=== PATIENT | female | born 1945 ===

== ENCOUNTER 2017-10-31 10:58 | Inpatient (IN) | payer MEDICARE ==
[2017-10-31] MEDS ORDERED: Sodium Chloride 0.9% 1,000 ML IV STA (12:26)
--- NOTE | 2017-10-31 13:56 | CT ---
PROCEDURE: CT HEAD WITHOUT CONTRAST. HISTORY: r/o ICH COMPARISON: None available. TECHNIQUE: Axial computed tomography images were obtained through the head/brain without intravenous contrast. Radiation dose: Total exam DLP = 804.60 mGy-cm. This CT exam was performed using one or more of the following dose reduction techniques: Automated exposure control, adjustment of the mA and/or kV according to patient size, and/or use of iterative reconstruction technique. FINDINGS: HEMORRHAGE: No intracranial hemorrhage. BRAIN: Good corticomedullary differentiation is seen. Diffuse expansion of the ventriculosulcal and cisternal spaces is appreciated with white matter lucency compatible with diffuse cerebral atrophy and chronic microangiopathy. No suspicious extra-axial fluid collection is identified and the midline brain anatomy appears grossly nonfocal as imaged. There a few punctate cortical granulomata seen in the left frontal region. There is no mass effect throughout. VENTRICLES: Unremarkable. No hydrocephalus. CALVARIUM: Unremarkable. PARANASAL SINUSES: Unremarkable as visualized. No significant inflammatory changes. MASTOID AIR CELLS: Unremarkable as visualized. No inflammatory changes. OTHER FINDINGS: None. IMPRESSION: Mild age related neuro degenerative changes are appreciated without acute intracranial findings by standard CT criteria. Follow-up CT or MRI are available if clinically warranted.
--- NOTE | 2017-10-31 14:13 | RAD ---
HISTORY: SOB COMPARISON: 05/26/2008 TECHNIQUE: Chest PA and lateral FINDINGS: LUNGS: No active pulmonary disease. PLEURA: No significant pleural effusion identified. No pneumothorax apparent. CARDIOVASCULAR: Normal. OSSEOUS STRUCTURES: No significant abnormalities. VISUALIZED UPPER ABDOMEN: Normal. OTHER FINDINGS: None. IMPRESSION: No active disease.
[2017-10-31 14:14] LABS: BASO % 0.3 % (0.0-2.0); EOS % 0.7 % (0.0-4.0); LYMPH # 1.3 K/uL (1.0-4.3); LYMPH % 23.9 % (20.0-40.0); MEAN CELL VOLUME 78.2 fl (81.0-99.0); MEAN CORPUSCULAR HEMOGLOBIN 25.3 pg (27.0-31.0); MEAN CORPUSCULAR HGB CONC 32.4 g/dL (33.0-37.0); MEAN PLATELET VOLUME 10.3 fl (7.2-11.7); MONO # 0.6 K/uL (0.0-0.8); MONO % 10.3 % (0.0-10.0); NEUT # 3.5 K/uL (1.8-7.0); NEUT % 64.8 % (50.0-75.0); NRBC % 0.1 % (0.0-0.0); RBC 5.52 Mil/uL (3.80-5.20); RED CELL DISTRIBUTION WIDTH 16.7 % (11.5-14.5); WHITE BLOOD COUNT 5.4 K/uL (4.8-10.8)
[2017-10-31 14:24] LABS: ALB/GLOB RATIO 1.2 (1.0-2.1); ALBUMIN 4.3 g/dL (3.5-5.0); ALT/SGPT 35 U/L (9-52); AST/SGOT 30 U/L (14-36); BLOOD UREA NITROGEN 12 mg/dl (7-17); CALCIUM 9.4 mg/dL (8.4-10.2); GFR AFRICAN-AMERICAN > 60; GFR NON-AFRICAN AMERICAN > 60
--- NOTE | 2017-10-31 14:30 | ED PDOC ---
HPI: Headache Time Seen by Provider: 10/31/17 11:09 Chief Complaint (Nursing): Weakness/Neurological Deficit Chief Complaint (Provider): Generalized weaknes, headache & difficulty ambulating History Per: Patient, Family History/Exam Limitations: no limitations Onset/Duration Of Symptoms: Days (x1 week) Current Symptoms Are (Timing): Still Present Additional Complaint(s): Joleen Capps is a 72 year old female, with a past medical history of Parkinson's disease and HTN, who presents to the emergency department accompanied by family complaining of a worsening generalized weakness, headache , and difficulty ambulating ongoing for a week, associated with mild shortness of breath. Family also reports loose stools and state she has been somewhat confused more than baseline. Family denies any fever, chills, cough or vomiting. Patient takes Carbidopa/Levodopa for Parkinson's along with Klonopin for anxiety and Mirtazapine for sleep, she is not taking medications for her HTN. She saw her neurologist x1 month ago. No further medical complaints. PMD: None provided. Past Medical History Reviewed: Historical Data, Nursing Documentation, Vital Signs Vital Signs: Last Vital Signs Temp 99.5 F 10/31/17 11:16 Pulse 81 10/31/17 11:16 Resp 18 10/31/17 11:16 BP 169/87 H 10/31/17 11:16 Pulse Ox 96 10/31/17 11:16 - Medical History PMH: Anxiety, HTN (Not on medications), Parkinson's Disease - Surgical History Other surgeries: hysterectomy - Family History Family History: States: No Known Family Hx - Social History Current smoker - smoking cessation education provided: No Alcohol: None Drugs: Denies - Home Medications Home Medications: Ambulatory Orders Medication Instructions Recorded Alprazolam [Xanax] 1 tab PO PRN PRN 10/31/17 Aspirin [Ecotrin] 81 mg PO DAILY 10/31/17 Carbidopa/Levodopa 25/100 mg 1 tab PO QID 10/31/17 [Sinemet] Clonazepam [Klonopin] 0.5 mg PO BID 10/31/17 Ibuprofen [Advil] 1 tab PO PRN PRN 10/31/17 - Allergies Allergies/Adverse Reactions: Allergies Allergy/AdvReac Type Severity Reaction Status Date / Time Penicillins Allergy RASH Verified 10/31/17 11:20 Review of Systems ROS Statement: Except As Marked, All Systems Reviewed And Found Negative Constitutional: Positive for: Weakness (generalized). Negative for: Fever Cardiovascular: Negative for: Edema Respiratory: Negative for: Cough Gastrointestinal: Negative for: Abdominal Pain Neurological: Positive for: Confusion, Headache Physical Exam - Reviewed Nursing Documentation Reviewed: Yes Vital Signs Reviewed: Yes - Physical Exam Appears: Positive for: Non-toxic. Negative for: Well (generally Parkinsonian w / flat facies) Head Exam: Positive for: ATRAUMATIC, NORMOCEPHALIC Skin: Positive for: Normal Color, Warm, Dry Eye Exam: Positive for: Normal appearance, EOMI, PERRL Neck: Positive for: Painless ROM, Supple Cardiovascular/Chest: Positive for: Regular Rate, Rhythm. Negative for: Edema, Murmur Respiratory: Positive for: Normal Breath Sounds (clear to auscultation). Negative for: Respiratory Distress Gastrointestinal/Abdominal: Positive for: Normal Exam, Soft. Negative for: Tenderness, Guarding, Rebound Back: Positive for: Normal Inspection. Negative for: L CVA Tenderness, R CVA Tenderness, Vertebral Tenderness Extremity: Positive for: Other (b/l hypertensitivity/rigidity ). Negative for: Deformity, Swelling Neurologic/Psych: Positive for: Alert, Oriented (x3 in the ED ) - Laboratory Results Result Diagrams: 10/31/17 14:10 10/31/17 14:10 - ECG ECG Rhythm: Positive for: Sinus Rhythm Rate: 74 O2 Sat by Pulse Oximetry: 96 (RA) Pulse Ox Interpretation: Normal Interpretation Of Abnormal: Inferior Q waves, QTc 435 Medical Decision Making Medical Decision Making: Initial Impression: generalized weakness and headache Initial Plan: --Head w/o contrast [CT] --EK --CMP --Total creatinine kinase --Troponin I --CBC w/ differential --Chest two views (PA/LAT) [RAD] --Glucose, POC --Sodium Chloride 1,000 ml IV 1,000 mls/hr --Urinalysis --Reevaluation -Work up for generalized weakness and headache w/ CT head, blood work and CXR While in ED, son arrived giving further history that his mother has been depressed and attempted suicide last week with attempting to suffocate self. Patient/ did not admit to such before. Son reports increasing use of xanax/ klonopin and tearful hopelessness from mother Bernice avina requested. CTA also ordered given reports of mild Chest pain and SOB, c/w prior anxiety, but given sedentary lifestyle must r/o PE. 14:11 CXR FINDINGS: LUNGS: No active pulmonary disease. PLEURA: No significant pleural effusion identified. No pneumothorax apparent. CARDIOVASCULAR: Normal. OSSEOUS STRUCTURES: No significant abnormalities. VISUALIZED UPPER ABDOMEN: Normal. OTHER FINDINGS: None. IMPRESSION: No active disease. 13:[address] FINDINGS: HEMORRHAGE: No intracranial hemorrhage. BRAIN: Good corticomedullary differentiation is seen. Diffuse expansion of the ventriculosulcal and cisternal spaces is appreciated with white matter lucency compatible with diffuse cerebral atrophy and chronic microangiopathy. No suspicious extra-axial fluid collection is identified and the midline brain anatomy appears grossly nonfocal as imaged. There a few punctate cortical granulomata seen in the left frontal region. There is no mass effect throughout. VENTRICLES: Unremarkable. No hydrocephalus. CALVARIUM: Unremarkable. PARANASAL SINUSES: Unremarkable as visualized. No significant inflammatory changes. MASTOID AIR CELLS: Unremarkable as visualized. No inflammatory changes. OTHER FINDINGS: None. IMPRESSION: Mild age related neuro degenerative changes are appreciated without acute intracranial findings by standard CT criteria. Follow-up CT or MRI are available if clinically warranted. Accession No. : [id number] Patient Name / ID : EDITH CADENA / [id number] Exam Date : 10/31/2017 17:24:49 ( Approved ) Study Comment : Sex / Age : F / 72Y Creator : Miguel Pollock MD Dictator : Fire Support Man : Assistant Designer : Miguel Pollock MD Approver2 : Report Date : 10/31/2017 18:11:24 My Comment : This report is currently processing and HAS NOT BEEN OFFICIALLY SIGNED BY THE PHYSICIAN - ESTIMATED TIME OF APPROVAL IS 10/31/2017 18:17. PROCEDURE: CT Chest with contrast (Pulmonary Angiogram) HISTORY: Bedbound, chest pain mild SOB r/o PE COMPARISON: None available. TECHNIQUE: Contiguous helical/ transaxial sections of the chest obtained in the pulmonary arterial phase of enhancement. Coronal and sagittal reformatted images were created and reviewed. Intravenous contrast dose: 65.5 cc Visipaque 320 Radiation dose: Total exam DLP = 381.69 mGy-cm. This CT exam was performed using one or more of the following dose reduction techniques: Automated exposure control, adjustment of the mA and/or kV according to patient size, and/or use of iterative reconstruction technique. FINDINGS: PULMONARY ARTERIES: The study is suboptimal due to streak and beam hardening artifact arising from the upper extremities which have not been moved from the field of view. The visualized portions of the pulmonary trunk, right and left main, segmental and most proximal margins of the subsegmental branches of the pulmonary arteries are relatively well opacified with no definitive filling defects however note that the distal branches are poorly delineated due to at aforementioned. Pulmonary trunk measures approximately 2.8 cm AORTA: No acute findings. No thoracic aortic aneurysm see below for additional details. LUNGS: Evaluation of the lung parenchyma reveals no focal consolidation however mild passive/dependent type atelectasis both posterior lower lung zones. . There are scarring changes seen in the right anterior aspect right upper lobe which exhibit that extend to the anterior pleural surface. Within this area scarring is a somewhat elliptical shaped nodular component measuring approximately 9 mm that is felt to represent somewhat atypical appearing scar formation as well however the possibility of underlying lesion such is a scar carcinoma cannot be completely excluded. Recommend followup the CT scan of the chest in 3 months to assess stability. . Minor scarring changes also seen in the of left lingular region and left lung base. PLEURAL SPACES: Unremarkable. No effusion or pneumothorax. HEART: The heart is enlarged. No significant pericardial effusion. Ascending thoracic aorta measures approximately 3.2 cm and descending thoracic aorta measures approximately 2.3 cm. . The right brachiocephalic and left common carotid artery arise from a common trunk. The central airways are midline and patent. No large endoluminal lesions. LYMPH NODES: No significant mediastinal adenopathy however note made of a few small mediastinal calcifications consistent with tiny calcified mediastinal lymph nodes; calcifications suggest prior exposure to granulomatous disease process. No significant the hilar adenopathy. BONES, CHEST WALL: The osseous structures appear grossly intact. Mild diffuse demineralization. OTHER FINDINGS: Evaluation of the upper abdominal structures also limited due to more significant streak artifact again related to upper extremities which have not been moved from the field of view IMPRESSION: No limited study due to fairly significant streak and beam hardening artifact arising from the upper extremities which have not been moved from the field of view. No definitive evidence of central pulmonary embolus however the distal branches poorly seen and cannot be adequately evaluated. Scarring changes seen in the right anterior upper lung field with a a central approximately 9 mm elliptical shaped nodular component ;. Recommend follow-up CT scan 3 months to assess stability and exclude the possibility of an aggressive lesion such is a scar carcinoma. Mild passive/dependent type atelectasis both lung bases. Cardiomegaly. --------- ativan 1mg IV given for anxiolysis for CTA. Son informed of CT results and need for repeat testing 3 months to assure stability of R upper lobe lesion. Per crisis, admit geropsych. Medically stable for geropsych admission, likely to need med/neuro consults on floor for maintence parkinsons medications. Scribe Attestation: Documented by Pito Russell, acting as a scribe for Camilo Michelle MD Provider Scribe Attestation: All medical record entries made by the Scribe were at my direction and personally dictated by me. I have reviewed the chart and agree that the record accurately reflects my personal performance of the history, physical exam, medical decision making, and the department course for this patient. I have also personally directed, reviewed, and agree with the discharge instructions and disposition. Disposition - Clinical Impression Clinical Impression: Depression, Parkinsons disease, Benzodiazepine abuse - Patient ED Disposition Is Patient to be Admitted: Yes - Disposition Disposition Time: 15:01 Condition: FAIR Forms: [employer] (Albanian) - Pt Status Changed To: Hospital Disposition Of: Inpatient - Admit Certification Admit to Inpatient:: After my assessment, the patient will require hospitalization for at least two midnights. This is because of the severity of symptoms shown, intensity of services needed, and/or the medical risk in this patient being treated as an outpatient. - POA Present On Arrival: None
[2017-10-31] MEDS ORDERED: Sodium Chloride 0.9% 100 ML ONE (15:12)
[2017-10-31] MEDS ORDERED: Iodixanol 320 MG/ML 100 ML BOTTLE IV ONE (15:12)
[2017-10-31 15:32] LABS: SQUAMOUS EPITHIAL < 1 /hpf (0-5); URINE BACTERIA RARE (<OCC); URINE BILIRUBIN NEGATIVE (NEGATIVE); URINE BLOOD SMALL (NEGATIVE); URINE CLARITY CLEAR (Clear); URINE COLOR STRAW (YELLOW); URINE GLUCOSE (UA) NEG (Normal); URINE LEUKOCYTE ESTERASE NEG Leu/uL (Negative); URINE PROTEIN NEGATIVE (NEGATIVE); URINE UROBILINOGEN 0.2-1.0 mg/dL (0.2-1.0)
--- NOTE | 2017-10-31 18:13 | CT ---
PROCEDURE: CT Chest with contrast (Pulmonary Angiogram) HISTORY: Bedbound, chest pain mild SOB r/o PE COMPARISON: None available. TECHNIQUE: Contiguous helical/ transaxial sections of the chest obtained in the pulmonary arterial phase of enhancement. Coronal and sagittal reformatted images were created and reviewed. Intravenous contrast dose: 65.5 cc Visipaque 320 Radiation dose: Total exam DLP = 381.69 mGy-cm. This CT exam was performed using one or more of the following dose reduction techniques: Automated exposure control, adjustment of the mA and/or kV according to patient size, and/or use of iterative reconstruction technique. FINDINGS: PULMONARY ARTERIES: The study is suboptimal due to streak and beam hardening artifact arising from the upper extremities which have not been moved from the field of view. The visualized portions of the pulmonary trunk, right and left main, segmental and most proximal margins of the subsegmental branches of the pulmonary arteries are relatively well opacified with no definitive filling defects however note that the distal branches are poorly delineated due to at aforementioned. Pulmonary trunk measures approximately 2.8 cm AORTA: No acute findings. No thoracic aortic aneurysm see below for additional details. LUNGS: Evaluation of the lung parenchyma reveals no focal consolidation however mild passive/dependent type atelectasis both posterior lower lung zones. . There are scarring changes seen in the right anterior aspect right upper lobe which exhibit that extend to the anterior pleural surface. Within this area scarring is a somewhat elliptical shaped nodular component measuring approximately 9 mm that is felt to represent somewhat atypical appearing scar formation as well however the possibility of underlying lesion such is a scar carcinoma cannot be completely excluded. Recommend followup the CT scan of the chest in 3 months to assess stability. . Minor scarring changes also seen in the of left lingular region and left lung base. PLEURAL SPACES: Unremarkable. No effusion or pneumothorax. HEART: The heart is enlarged. No significant pericardial effusion. Ascending thoracic aorta measures approximately 3.2 cm and descending thoracic aorta measures approximately 2.3 cm. . The right brachiocephalic and left common carotid artery arise from a common trunk. The central airways are midline and patent. No large endoluminal lesions. LYMPH NODES: No significant mediastinal adenopathy however note made of a few small mediastinal calcifications consistent with tiny calcified mediastinal lymph nodes; calcifications suggest prior exposure to granulomatous disease process. No significant the hilar adenopathy. BONES, CHEST WALL: The osseous structures appear grossly intact. Mild diffuse demineralization. OTHER FINDINGS: Evaluation of the upper abdominal structures also limited due to more significant streak artifact again related to upper extremities which have not been moved from the field of view IMPRESSION: No limited study due to fairly significant streak and beam hardening artifact arising from the upper extremities which have not been moved from the field of view. No definitive evidence of central pulmonary embolus however the distal branches poorly seen and cannot be adequately evaluated. Scarring changes seen in the right anterior upper lung field with a a central approximately 9 mm elliptical shaped nodular component ;. Recommend follow-up CT scan 3 months to assess stability and exclude the possibility of an aggressive lesion such is a scar carcinoma. Mild passive/dependent type atelectasis both lung bases. Cardiomegaly.
[2017-10-31 18:17] VITALS: O2SAT 96
[2017-10-31] MEDS ORDERED: Bismuth Subsalicylate 262 mg/15 ml Sus (240 ml) PO PRN (20:13)
[2017-10-31] MEDS ORDERED: Magnesium Hydroxide Susp 30 ml UD PO PRN (20:13)
[2017-10-31] MEDS ORDERED: Alum-Mag Hydrox-Simethicone Susp (30 mL) PO PRN (20:13)
--- NOTE | 2017-10-31 20:31 | PCM.BM ---
<Verena Harrison - Last Filed: 10/31/17 20:29> Treatment Plan Problems - Problems identified on initial assessmt Hopelessness/Helplessness Date Initiated: 10/31/17 Time Initiated: 20:29 Assessment reference: NA Status: Active Altered Sleep Patterns Date Initiated: 10/31/17 Time Initiated: 20:30 Assessment reference: NA Status: Active Treatment assets and liabiliti Patient Assests: cooperative, good support system, negotiates basic needs, cognitively intact Patient Liabilities: medical problems, language/speech - Milieu Protocol Maintain good personal hygiene: daily Encourage regular showers, daily Remind patient to perform daily oral care, daily Assist patient to perform ADL's Conduct patient checks and document Observation sheet: Q15 minutes Maintain personal safety: every shift Educate patient to report safety concerns to staff, every shift Monitor environment for contraband/sharps Medication safety: Monitor for expected outcome, potential side effects: every shift, Assess barriers to learning: every shift, Assess readiness for medication education: every shift <Sadie Guallap - Last Filed: 11/01/17 08:23> - Diagnosis (1) Major depressive disorder Status: Acute Interventions: Medication managment, Individual and group therapy, Psychoeducation 11/01/17 07:59 (2) Generalized anxiety disorder Status: Acute Interventions: Medication management, Individual and group therapy, Psychoeducation 11/01/17 08:24 <Scarlet Granados - Last Filed: 11/02/17 12:14> Family Contact Family involvement: Family/SO is involved Family contact: Patient agrees to contact, Family has been contacted by patient , Telephone contact initiated by staff Family contact name: Keon Reeves - son Family contacted how many times per week?: 1 - Outside Agency Dr. Keerthi Clemente MD Care involvment: Information-sharing Agency contact number: [phone] - Goals for Treatment Patient goals for treatment: Pt to be encouraged to attend activity and clinical groups 3-5x per week to identify at least 2 contributing factors to depression and suicide attempt. Psycho-education to be provided to patient/ family regarding benefits of medications and treatment adherence. Pt to be encouraged to participate in group milieu to develop effective coping skills to reduce depression and free of suicide ideation. Coordinate discharge resource needs by providing referral for psychiatric treatment follow up in the community. Discharge/Continuing Care - Education Needs Education Needs: Family Medication, Family Diagnosis/Disease Process, Family Coping Skills, Family Community resources, Family Activities of Daily Living, Family Uses of Medical Equipment, Family Health Practices/Safety, Family Personal Hygiene/Grooming, Family Aftercare Safety Plan, Patient Medication, Patient Diagnosis/Disease Process, Patient Coping Skills, Patient Community resources, Patient Activities of Daily Living, Patient Uses of Medical Equipment , Patient Health Practices/Safety, Patient Personal Hygiene/Grooming, Patient Aftercare Safety Plan - Discharge Discharge Criteria: Tolerates medication w/o severe side effects, Free of Suicidal thoughts, Normal sleep pattern, Ability to care for self, Reduction of target symptoms Discharge to:: Home, With Family - Additional Comments 11/02/17 12:10 Pt seen and discussed in team meeting. Reason for hospitalization reviewed. Pt reported being referred to the ED by her son due to increased feelings of depression, anxiety and sporadic suicide ideation. Pt reported feeling a burden to her due to her medical issues and the inability to complete household chorus. Pt reported that her is elderly and "is getting tired of doing everything." Pt reported that she feels depressed because prior to one year ago she was doing everything around the house and the one caring for her family. Pt reported she has sudden panic attacks which then cause her to experience vague suicide ideation. Pt reported she would not act on the thoughts bc she is Gnosticist and has myles in God. Pt also reported she would never want to hurt her children. Pt's medications reviewed and discussed. Pt's social and medical issues reviewed. [place] plan reviewed and pt is agreeable. SW to continue to follow case. - Treatment Team Participation Discussed with Family/SO: No Was Patient/Family/SO present at Treatment Team Meeting: Yes
[2017-11-01 07:42] LABS: T4 10.7 ug/dl (5.5-11.0)
[2017-11-01 07:59] LABS: FERRITIN 51.7 ng/Ml (11.1-264.0)
--- NOTE | 2017-11-01 08:00 | PCM.PSYCH ---
Initial Psychiatric Evaluation - Initial Psychiatric Evaluation Type of Admission: Voluntary Legal Status: Capacity Chief Complaint (in patient's own words): "I'm so anxious" Patient's Reaction to Hospitalization: HPI: 72 yo female presents w/ worsening depression and anxiety due to worsening parkinson's symptoms and feelings of hopelessness and helplessness about her condition. She reports that sometimes she has passive wishes that she were not alive due to her medical problems, but denies active suicidal ideation/plan/ intent and reports that her mandaen mandaen, and grandchildren are reasons to continue living. She reports difficulty sleeping at night. +Normal appetite. No AH/VH/paranoia/delusions. PMHx: Parkinson's Disease, HTN PPHx: H/o depression and anxiety; currently in outpatient treatment w/ Dr. Clemente , who prescribed Remeron and Xanax; she does not believe the medications are working ALL: PCN SurgHx: Hysterectomy SHx: From [facility], retired, used to own a restaurant, lives w/ husbands; denies drugs/etoh/cig use Current Medications: Active Medications Generic Name Dose Route Start Last Admin Trade Name Freq PRN Reason Stop Dose Admin Acetaminophen 650 mg 10/31/17 20:13 Tylenol 325mg Tab PO Q4 PRN Pain, moderate (4-7) Al Hydrox/Mg Hydrox/Simethicone 30 ml 10/31/17 20:13 Maalox Plus 30 Ml PO Q4 PRN Dyspepsia Bismuth Subsalicylate 524 mg 10/31/17 20:13 Pepto-Bismol PO Q4 PRN Diarrhea Lorazepam 0.5 mg 10/31/17 20:52 11/01/17 00:34 Ativan PO 11/14/17 20:53 0.5 mg HS PRN Administration Insomnia Lorazepam 0.5 mg 10/31/17 20:52 Ativan PO 11/14/17 20:53 Q6 PRN Anixety/Agitation Magnesium Hydroxide 30 ml 10/31/17 20:13 Milk Of Magnesia PO HS PRN Constipation Past Psychiatric History - Past Psychiatric History Pertinent Medical Hx (Current Medical&Sleep Prob, Allergies): Allergies Allergy/AdvReac Type Severity Reaction Status Date / Time Penicillins Allergy RASH Verified 10/31/17 11:20 Alprazolam [Xanax] 1 tab PO PRN PRN 10/31/17 Aspirin [Ecotrin] 81 mg PO DAILY 10/31/17 Carbidopa/Levodopa 25/100 mg [Sinemet] 1 tab PO QID 10/31/17 Ibuprofen [Advil] 1 tab PO PRN PRN 10/31/17 Review of Systems - Psychiatric Psychiatric: As Per HPI, Abnormal Sleep Pattern, Change in Appetite, Depression , Difficulty Concentrating, Hopelessness, Memory Loss, Mood Swings Mental Status Examination - Personal Presentation Personal Presentation: Looks stated age - Affect Affect: Constricted, Depressed - Motor Activity Motor Activity: Calm - Reliability in Providing Information Reliability in Providing Information: Fair - Speech Speech: Organized, Coherent - Mood Mood: Depressed, Anxious - Hallucinations/Delusions Additional comments: Denies AH/VH/paranoia - Obsessions/Compulsions Obsessions: No Compulsions: No - Cognitive Functions Orientation: Person, Place, Situation, Time Sensorium: Alert Attention/Concentration: Attentive Judgement: Intact, as evidence by: Insight regarding need for hospitalization Memory: Recent intact, as evidence by: Ability to recall events of the day - Risk Risk: Diminished functioning - Strength & Assets Inventory Strength & Assets Inventory: Family support, Employment history, Spiritual affiliations, Cooperative DSM 5 DX - DSM 5 DSM 5 Diagnosis: Major Depressive Disorder; Generalized Anxiety Disorder - Recommended/Plan of Treatment Treatment Recommendations and Plan of Treatment: Major Depressive Disorder; Generalized Anxiety Disorder -Admit to geriatric psychiatry unit -Individual and group therapy -Medicine consult -Start Zoloft and hold Remeron -Stop Xanax; will give Ativan PRN as needed for anxiety -Continue Sinemet -Disposition planning Projected ELOS: 5-8 days Discharge Plan and Discharge Criteria: Discharge when patient is psychiatrically stable - Smoking Cessation Smoking Cessation Initiated: No Reason for not providing: Not indicated
[2017-11-01 08:25] LABS: IRON 44 ug/dL (37-170)
[2017-11-01 08:35] LABS: % IRON SATURATION 15 % (20-55); TOTAL IRON BINDING CAPACITY 295 ug/dL (250-450)
[2017-11-01 13:19] LABS: FOLATE 17.2 ng/mL
--- NOTE | 2017-11-01 18:19 | CP.PCM.CON ---
History of Present Illness - History of Present Illness History of Present Illness: This is a 72 year old female with pmh of Parkinson's disease and hypertension, who came to the ED c/o generalized weakness, headache x 1 week. The headache is constant "in the middle of my head" and associated with mild shortness of breath. The patient takes Sinemeet for Parkinson's, Klonopin for anxiety, and Mirtazepine for sleep. In the ED, the patient was found to have no acute finding of CVA or hemorrhage on CT head. Because of shortness of breath in the setting of sedentery lifestyle, the patient had CT chest done to r/o PE which was negative. CXR negative. However, in the ED Crisis team was called as the son gave further history of depression and attempted suicide last week in an attempt to sufficate herself. She has also been using increasing amounts of Xanax and klonopin at home. The patient was subsequently admitted to [facility] for further stabilization of her depression and suicide disorder. Medical consultation was obtained for management of her chronic illnesses, Parkinson's and hypertension. Currently the patient is admitting to headache as mentioned above. She denies any other problems at this time. Patient denies chest pain, shortness of breath, fevers, chills, nausea, vomiting, diarrhea. All of the patient's questions were answered at the bedside Review of Systems - Review of Systems Review of Systems: A 12 point review of systems was conducted and found to be negative other than what was mentioned in the HPI. Past Patient History - Infectious Disease Hx of Infectious Diseases: None - Past Medical History & Family History Past Medical History?: Yes Past Family History: Reviewed and not pertinent - Past Social History Alcohol: None Drugs: Denies - CARDIAC Hx Cardiac Disorders: No Hx Hypertension: Yes (Not on medications) - PULMONARY Hx Tuberculosis: No - NEUROLOGICAL HX Cerebrovascular Accident: No Hx Parkinson's Disease: Yes Hx Seizures: No - HEMATOLOGICAL/ONCOLOGICAL Hx Cancer: No Hx Human Immunodeficiency Virus (HIV): No - MUSCULOSKELETAL/RHEUMATOLOGICAL Hx Arthritis: Yes Hx Falls: Yes - GENITOURINARY/GYNECOLOGICAL Hx Sexually Transmitted Disorders: No - PSYCHIATRIC Hx Anxiety: Yes Hx Depression: Yes Hx Substance Use: No - SURGICAL HISTORY Hx Surgeries: Yes Hx Hysterectomy: Yes - ANESTHESIA Hx Anesthesia: Yes Hx Anesthesia Reactions: No Hx Malignant Hyperthermia: No Meds Allergies/Adverse Reactions: Allergies Allergy/AdvReac Type Severity Reaction Status Date / Time Penicillins Allergy RASH Verified 10/31/17 11:20 - Medications Medications: Current Medications Acetaminophen (Tylenol 325mg Tab) 650 mg PO Q4 PRN PRN Reason: Pain, moderate (4-7) Al Hydrox/Mg Hydrox/Simethicone (Maalox Plus 30 Ml) 30 ml PO Q4 PRN PRN Reason: Dyspepsia Aspirin (Ecotrin) 81 mg PO DAILY [facility] Last Admin: 11/01/17 09:15 Dose: 81 mg Bismuth Subsalicylate (Pepto-Bismol) 524 mg PO Q4 PRN PRN Reason: Diarrhea Carbidopa/Levodopa (Sinemet) 1 tab PO TID [facility] Last Admin: 11/01/17 16:39 Dose: 1 tab Lorazepam (Ativan) 0.5 mg PO HS PRN PRN Reason: Insomnia Stop: 11/14/17 20:53 Last Admin: 11/01/17 00:34 Dose: 0.5 mg Lorazepam (Ativan) 0.5 mg PO Q6 PRN PRN Reason: Anixety/Agitation Stop: 11/14/17 20:53 Last Admin: 11/01/17 12:34 Dose: 0.5 mg Magnesium Hydroxide (Milk Of Magnesia) 30 ml PO HS PRN PRN Reason: Constipation Sertraline HCl (Zoloft) 50 mg PO DAILY [facility] Last Admin: 11/01/17 09:15 Dose: 50 mg Physical Exam - Additional Findings Additional findings: Physical exam: Constitutional- cooperative, awake, alert Head- NCAT, PERRL Eye- PERRL, EOMI ENT- normal exam, MMM. Neck- normal inspection, supple, no JVD Respiratory- CTAB, no wheezes rales rhonchi Cardiovascular- RRR, +S1, +S2 no MRG GI/Abdominal- normal bowel sounds, soft, no mass, no hsm Skin- warm, dry Extremities Exam- resting tremor consistent with hx Parkinson's disease, normal capillary refill, normal inspection Neurological Exam- alert, awake, oriented Psych- depressed mood, flat affect Results - Vital Signs Recent Vital Signs: Last Vital Signs Temp 98.4 F 11/01/17 16:13 Pulse 69 11/01/17 16:13 Resp 20 11/01/17 16:13 BP 116/68 11/01/17 16:13 Pulse Ox 96 10/31/17 19:51 - Labs Result Diagrams: 10/31/17 14:10 10/31/17 14:10 Labs: Laboratory Results - last 24 hr 11/01/17 11/01/17 11/01/17 06:30 06:30 06:30 Hemoglobin A1c 6.1 Iron 44 TIBC 295 % Saturation 15 L Ferritin 51.7 Triglycerides 104 Cholesterol 151 LDL Cholesterol Direct 75 HDL Cholesterol 42 Vitamin B12 453 Folate 17.2 Free T4 Thyroxine (T4) 10.7 TSH 3rd Generation 2.83 11/01/17 06:30 Hemoglobin A1c Iron TIBC % Saturation Ferritin Triglycerides Cholesterol LDL Cholesterol Direct HDL Cholesterol Vitamin B12 Folate Free T4 1.09 Thyroxine (T4) TSH 3rd Generation Assessment & Plan - Assessment and Plan (Free Text) Plan: ASSESSMENT/PLAN This is a 72 year old female with pmh of Parkinson's disease and hypertension, who came to the ED c/o generalized weakness, headache x 1 week, and admitted to [facility] due to depression with suicidal attempt last week. 1) Parkinson's disease, chronic - stable - Continue home Sinemet 1 mg po TID 2) Essential hypertension history- chronic - controlled without medications - anxiety disorder may have provoked this in the past - ASA 81 mg po daily - Heart healthy diet 3) Depression - Zoloft 50 mg po daily
--- NOTE | 2017-11-01 23:00 | CARD ---
APPROVED REPORT EKG Measurement Heart [id number] SD [id number] [id number] <Conclusion> Normal sinus rhythm Inferior infarct, age undetermined Abnormal ECG
--- NOTE | 2017-11-02 11:58 | PCM.PYCHPN ---
Psychiatric Progress Note - Psychiatric Progress Note Patient seen today, length of contact: Patient evaluated, case discussed with team, chart reviewed Patient Chief Complaint: "I'm so anxious" Problems Identified/Issues Discussed: Patient continues to report feeling depressed and anxious. She states that her anxiety is worse at night. She has a history of chronic Xanax use. We discussed starting Klonopin at night. r/b/se reviewed. No adverse effects to medications reported at this time. Medication Change: Yes (Start Klonopin 0.25 mg PO HS) Medical Record Reviewed: Yes Consults ordered or reviewed: Medicine consult Mental Status Examination - Cognitive Function Orientation: Person, Place, Situation, Time Memory: Intact Association: WNL Fund of Knowledge: [facility] Decription of patient's judgement and insights: Fair I/J - Mood Mood: Depressed, Anxious - Affect Affect: Constricted, Depressed - Speech Speech: Appropriate - Formal Thought Process Formal Thought Process: No Impairment Psychotic Thoughts and Behaviors: No AH/VH/paranoia/delusions - Suicidal Ideation Suicidal Ideation: No - Homicidal Ideation Homicidal Ideation: No Goal/Treatment Plan - Goal/Treatment Plan Need for Continued Stay: Severe depression anxiety, Discharge may exacerbated symptoms Progress Toward Problem(s) and Goals/Treatment Plan: Major Depressive Disorder; Generalized Anxiety Disorder -Individual and group therapy -Medicine consult -Continue Zoloft -Continue Sinemet -Start Klonopin 0.25 mg PO HS -Disposition planning Estimated Date of D/C: 11/07/17
--- NOTE | 2017-11-03 10:24 | PCM.PYCHPN ---
Psychiatric Progress Note - Psychiatric Progress Note Patient seen today, length of contact: Patient evaluated, case discussed with team, chart reviewed Patient Chief Complaint: "I'm so anxious" Problems Identified/Issues Discussed: Patient continues to report feeling depressed and anxious. She reports that she has difficult concentrating due to her acute anxiety. r/b/se reviewed. No adverse effects to medications reported at this time. Medication Change: Yes (Increase Klonopin to 0.25 mg PO Q12) Medical Record Reviewed: Yes Mental Status Examination - Cognitive Function Orientation: Person, Place, Situation, Time Memory: Impaired Attention: Poor Concentration: Poor Association: WNL Fund of Knowledge: [facility] Decription of patient's judgement and insights: Limited I/J - Mood Mood: Depressed, Anxious - Affect Affect: Constricted, Depressed - Speech Speech: Appropriate - Formal Thought Process Formal Thought Process: No Impairment Psychotic Thoughts and Behaviors: No AH/VH/paranoia/delusions - Suicidal Ideation Suicidal Ideation: No - Homicidal Ideation Homicidal Ideation: No Goal/Treatment Plan - Goal/Treatment Plan Need for Continued Stay: Severe depression anxiety, Discharge may exacerbated symptoms Progress Toward Problem(s) and Goals/Treatment Plan: Major Depressive Disorder; Generalized Anxiety Disorder -Individual and group therapy -Medicine consult -Continue Zoloft -Continue Sinemet -Increase Klonopin to 0.25 mg PO Q12 -Disposition planning Estimated Date of D/C: 11/07/17
--- NOTE | 2017-11-04 11:35 | PCM.PYCHPN ---
Psychiatric Progress Note - Psychiatric Progress Note Patient seen today, length of contact: Patient evaluated, case discussed with team, chart reviewed Patient Chief Complaint: "I'm anxious." Problems Identified/Issues Discussed: Patient reports that she feels anxious, but that her anxiety is improving. She reports that she feels less depressed and is more hopeful. No adverse effects to medications reported at this time. Medication Change: No Medical Record Reviewed: Yes Consults ordered or reviewed: Medicine consult Mental Status Examination - Cognitive Function Orientation: Person, Place, Situation, Time Memory: Impaired Attention: Poor Concentration: Poor Association: WNL Fund of Knowledge: [facility] Decription of patient's judgement and insights: Limited I/J - Mood Mood: Depressed, Anxious - Affect Affect: Broad - Speech Speech: Appropriate - Formal Thought Process Formal Thought Process: No Impairment Psychotic Thoughts and Behaviors: No AH/VH/paranoia/delusions - Suicidal Ideation Suicidal Ideation: No - Homicidal Ideation Homicidal Ideation: No Goal/Treatment Plan - Goal/Treatment Plan Need for Continued Stay: Severe depression anxiety, Discharge may exacerbated symptoms Progress Toward Problem(s) and Goals/Treatment Plan: Major Depressive Disorder; Generalized Anxiety Disorder -Individual and group therapy -Medicine consult -Continue Zoloft -Continue Sinemet -Continue Klonopin -Disposition planning Estimated Date of D/C: 11/07/17
[2017-11-04] MEDS ORDERED: Naphazoline/Pheniramine Opht SOLN OU PRN (17:25)
--- NOTE | 2017-11-05 11:43 | PCM.PYCHPN ---
Psychiatric Progress Note - Psychiatric Progress Note Patient seen today, length of contact: Patient evaluated, case discussed with team, chart reviewed Patient Chief Complaint: "I'm anxious." Problems Identified/Issues Discussed: Patient is calmer, less anxious and less depressed. No adverse effects to medications reported at this time. No AH/VH/SI/HI. She continues to have constricted affect. Medication Change: No Medical Record Reviewed: Yes Consults ordered or reviewed: Medicine consult Mental Status Examination - Cognitive Function Orientation: Person, Place, Situation, Time Memory: Impaired Attention: Poor Concentration: Poor Association: WNL Fund of Knowledge: [facility] Decription of patient's judgement and insights: Limited I/J - Mood Mood: Depressed, Anxious - Affect Affect: Constricted - Speech Speech: Appropriate - Formal Thought Process Formal Thought Process: No Impairment Psychotic Thoughts and Behaviors: No AH/VH/paranoia/delusions - Suicidal Ideation Suicidal Ideation: No - Homicidal Ideation Homicidal Ideation: No Goal/Treatment Plan - Goal/Treatment Plan Need for Continued Stay: Severe depression anxiety, Discharge may exacerbated symptoms Progress Toward Problem(s) and Goals/Treatment Plan: Major Depressive Disorder; Generalized Anxiety Disorder -Individual and group therapy -Medicine consult -Continue Zoloft -Continue Sinemet -Continue Klonopin -Disposition planning Estimated Date of D/C: 11/07/17
[2017-11-06 07:20] LABS: SQUAMOUS EPITHIAL 1 /hpf (0-5); URINE BACTERIA RARE (<OCC); URINE BILIRUBIN NEGATIVE (NEGATIVE); URINE BLOOD MODERATE (NEGATIVE); URINE CLARITY SLIGHTY-CLOUDY (Clear); URINE COLOR STRAW (YELLOW); URINE GLUCOSE (UA) NEG (Normal); URINE LEUKOCYTE ESTERASE MOD Leu/uL (Negative); URINE PROTEIN NEGATIVE (NEGATIVE); URINE UROBILINOGEN 0.2-1.0 mg/dL (0.2-1.0)
--- NOTE | 2017-11-06 09:45 | PCM.PYCHPN ---
Psychiatric Progress Note - Psychiatric Progress Note Patient seen today, length of contact: Patient evaluated, case discussed with team, chart reviewed Patient Chief Complaint: "I'm anxious." Problems Identified/Issues Discussed: Patient continues to report anxiety and depression. She is more goal oriented and has improve appetite. No adverse effects to medications reported at this time. No AH/VH/SI/HI. Novel[employer]ing [employer] spoke with patients' family (, son, daughter) yesterday who expressed concerns about her psychological dependence on benzodiazepines and her history of abusing them in the past. We discussed tapering and stopping treatment w/ benzodiazepines. Psychoeducation provided about the patient's cognitive impairments and chronic anxiety. Medication Change: No Medical Record Reviewed: Yes Consults ordered or reviewed: Medicine consult Mental Status Examination - Cognitive Function Orientation: Person, Place, Situation, Time Memory: Impaired Attention: Poor Concentration: Poor Association: WNL Fund of Knowledge: [facility] Decription of patient's judgement and insights: Limited I/J - Mood Mood: Depressed, Anxious - Affect Affect: Constricted - Speech Speech: Appropriate - Formal Thought Process Formal Thought Process: No Impairment Psychotic Thoughts and Behaviors: No AH/VH/paranoia/delusions - Suicidal Ideation Suicidal Ideation: No - Homicidal Ideation Homicidal Ideation: No Goal/Treatment Plan - Goal/Treatment Plan Need for Continued Stay: Severe depression anxiety, Discharge may exacerbated symptoms Progress Toward Problem(s) and Goals/Treatment Plan: Major Depressive Disorder; Generalized Anxiety Disorder; Dementia -Individual and group therapy -Medicine consult -Continue Zoloft -Continue Sinemet -Taper and Stop Klonopin -Disposition planning Estimated Date of D/C: 11/08/17
--- NOTE | 2017-11-07 09:34 | PCM.PYCHPN ---
Psychiatric Progress Note - Psychiatric Progress Note Patient seen today, length of contact: Patient evaluated, case discussed with team, chart reviewed Patient Chief Complaint: "I'm anxious." Problems Identified/Issues Discussed: Patient reports that her anxiety and depression are improving. She continues to have difficulty sleeping at night. She is not agreeable to KAYA at this time. No adverse effects to medications reported at this time. No AH/VH/SI/HI. Medication Change: Yes (Start Remeron 7.5 mg PO HS) Medical Record Reviewed: Yes Consults ordered or reviewed: Medicine consult Mental Status Examination - Cognitive Function Orientation: Person, Place, Situation, Time Memory: Impaired Attention: Poor Concentration: Poor Association: WNL Fund of Knowledge: [facility] Decription of patient's judgement and insights: Improving I/J - Mood Mood: Anxious - Affect Affect: Broad - Speech Speech: Appropriate - Formal Thought Process Formal Thought Process: No Impairment Psychotic Thoughts and Behaviors: No AH/VH/paranoia/delusions - Suicidal Ideation Suicidal Ideation: No - Homicidal Ideation Homicidal Ideation: No Goal/Treatment Plan - Goal/Treatment Plan Need for Continued Stay: Severe depression anxiety, Discharge may exacerbated symptoms Progress Toward Problem(s) and Goals/Treatment Plan: Major Depressive Disorder; Generalized Anxiety Disorder; Dementia -Individual and group therapy -Medicine consult -Continue Zoloft -Continue Sinemet -Start Remeron 7.5 mg PO HS -Disposition planning Estimated Date of D/C: 11/08/17
[2017-11-08 06:17] VITALS: BP 123/75; PULSE 62; RESP 18; TEMP 97.7
--- NOTE | 2017-11-08 09:18 | PCM.PYCHDC ---
Mental Status Examination - Mental Status Examination Orientation: Person, Place, Situation, Time Memory: Impaired (Due to dementia) Mood: Neutral Affect: Broad Speech: Appropriate Attention: Poor Concentration: Poor Association: WNL Fund of Knowledge: Poor Formal Thought Process: No Impairment Description of patient's judgement and insight: I/J limited by dementia; patient to be taken care of by her family upon discharge Psychotic Thoughts and Behaviors: No AH/VH/paranoia/delusions Suicidal Ideation: No Current Homicidal Ideation?: No Discharge Summary - Discharge Note Reason for Hospitalization: HPI: 72 yo female presents w/ worsening depression and anxiety due to worsening parkinson's symptoms and feelings of hopelessness and helplessness about her condition. She reports that sometimes she has passive wishes that she were not alive due to her medical problems, but denies active suicidal ideation/plan/ intent and reports that her oriental orthodox religious, and grandchildren are reasons to continue living. She reports difficulty sleeping at night. +Normal appetite. No AH/VH/paranoia/delusions. PMHx: Parkinson's Disease, HTN PPHx: H/o depression and anxiety; currently in outpatient treatment w/ Dr. 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 Reason for request. 2. Findings. 3. Follow-up Consultations: Medicine consult Summary of Hospital Course include:: 1. Description of specific treatment plan utilized for patients during their course of treatmen. 2. Summarize the time- course for resolution of acute symptoms and/or regressed behaviors. 3. Describe issues identified and worked on during hospitalization. 4. Describe medication utilized. 5. Describe medical problems identified and treated. 6. Reassessment of suicide risk Summary of Hospital Course: Patient was admitted to the psychiatry unit. Individual and group therapy were provided. Patient was started on Cipro for a UTI. She was tapered of benzodiazepines. She was stabilized on Zoloft and Remeron. Sinemet was continued to Parkinson's Disease. - Diagnosis (1) Major depressive disorder Current Visit: Yes Status: Chronic (2) Generalized anxiety disorder Current Visit: Yes Status: Chronic - Final Diagnosis (DSM 5) Condition upon Discharge: STABLE DSM 5: Major Depressive Disorder; Generalized Anxiety Disorder; Dementia Disposition: HOME/ ROUTINE Follow-up Treatment Plan: Major Depressive Disorder; Generalized Anxiety Disorder; Dementia; Patient is psychiatrically stable for discharge. Prescriptions/Medication Reconciliation: Carbidopa/Levodopa 25/100 mg [Sinemet] 1 tab PO TID #90 tab Ciprofloxacin [Cipro] 500 mg PO Q12 #11 tab Mirtazapine [Remeron] 7.5 mg PO HS #30 tab Naphazoline/Pheniramine Opht [Naphcon-A Opht] 1 drop OU QID PRN #1 bottle PRN Reason: eye irritation Sertraline [Zoloft] 50 mg PO DAILY #30 tab - Smoking Cessation Smoking Cessation Medication prescribed: No Reason for not providing: Not indicated - Antipsychotic Medications Pt discharged on 2 or more routine antipsychotic medications: No
== END 2017-11-08 11:00 | disposition home or self-care (01) | DRG 881 ==
LOC: H.ER 10:58 → H.ERHOLD 18:20 → H.STEP 19:54
PROVIDERS: ADMIT Psychiatry & Neurology Psychiatry; ATTEND Psychiatry & Neurology Psychiatry
PROC: GZ72ZZZ Family Psychotherapy (ICD-10-PCS; principal; 2017-10-31)
PROC: GZHZZZZ Group Psychotherapy (ICD-10-PCS; 2017-10-31)
DX: F32.9 Major depressive disorder, single episode, unspecified (principal); R45.851 Suicidal ideations; N39.0 Urinary tract infection, site not specified; G20 Parkinson's disease; I10 Essential (primary) hypertension; F41.1 Generalized anxiety disorder; Z88.0 Allergy status to penicillin; F02.80 Dementia in other diseases classified elsewhere, unspecified severity, without behavioral disturbance, psychotic disturbance, mood disturbance, and anxiety; Z74.01 Bed confinement status

== ENCOUNTER 2017-11-30 12:21 | Emergency (ER) | payer MEDICARE ==
[2017-11-30 12:37] VITALS: TEMP 98.2
[2017-11-30] MEDS ORDERED: Sodium Chloride 0.9% 1,000 ML IV SCH (13:15)
[2017-11-30 14:08] LABS: BASO % 0.6 % (0.0-2.0); EOS # 0.1 K/uL (0.0-0.7); EOS % 1.5 % (0.0-4.0); HEMOGLOBIN 13.3 g/dL (12.0-16.0); LYMPH # 2.2 K/uL (1.0-4.3); LYMPH % 26.4 % (20.0-40.0); MEAN CELL VOLUME 77.6 fl (81.0-99.0); MEAN CORPUSCULAR HEMOGLOBIN 25.6 pg (27.0-31.0); MONO # 0.7 K/uL (0.0-0.8); MONO % 8.2 % (0.0-10.0); NEUT # 5.2 K/uL (1.8-7.0); NEUT % 63.3 % (50.0-75.0); RBC 5.22 Mil/uL (3.80-5.20); RED CELL DISTRIBUTION WIDTH 16.5 % (11.5-14.5); WHITE BLOOD COUNT 8.2 K/uL (4.8-10.8)
[2017-11-30 14:28] LABS: ALB/GLOB RATIO 1.2 (1.0-2.1); ALBUMIN 4.1 g/dL (3.5-5.0); ALT/SGPT 24 U/L (9-52); AST/SGOT 32 U/L (14-36); BLOOD UREA NITROGEN 12 mg/dl (7-17); CALCIUM 9.1 mg/dL (8.4-10.2); GFR AFRICAN-AMERICAN > 60; GFR NON-AFRICAN AMERICAN > 60
[2017-11-30 15:14] VITALS: RESP 18
--- NOTE | 2017-11-30 16:36 | ED PDOC ---
HPI: Chest Pain Time Seen by Provider: 11/30/17 12:50 Chief Complaint (Nursing): Chest Pain History Per: Patient, Family (This is a 72 yo lady with h/o parkinson's disease and anxiety who is brought to the ER because of persistent headaches and chest pain since she was started on Zoloft one month ago when she was admitted to psych. She had been on anxiolytics prior to this. She states that her symptoms are aggravated everytime she takes the Zoloft.) Past Medical History Reviewed: Historical Data, Nursing Documentation, Vital Signs Vital Signs: Last Vital Signs Temp 98.2 F 11/30/17 12:34 Pulse 75 11/30/17 14:44 Resp 18 11/30/17 17:27 BP 148/85 11/30/17 17:27 Pulse Ox 97 11/30/17 17:27 - Medical History PMH: Anxiety, Arthritis, Depression, HTN (Not on medications), Parkinson's Disease Denies: Diabetes, Hepatitis, HIV, Seizures, Sexually Transmitted Disease - Family History Family History: States: Unknown Family Hx - Living Arrangements Living Arrangements: With Family - Social History Current smoker - smoking cessation education provided: No - Home Medications Home Medications: Ambulatory Orders Medication Instructions Recorded Aspirin [Ecotrin] 81 mg PO DAILY 10/31/17 Mirtazapine [Remeron] 7.5 mg PO HS #30 tab 11/07/17 Sertraline [Zoloft] 50 mg PO DAILY #30 tab 11/07/17 Carbidopa/Levodopa [Sinemet Cr 1 tab PO Q8 11/30/17 25-100 Tablet] Turmeric/Turmeric Root Extract 1 cap PO DAILY 11/30/17 [Turmeric 500 mg Capsule] buPROPion SR [Wellbutrin SR 150 MG] 150 mg PO DAILY #30 tab 11/30/17 - Allergies Allergies/Adverse Reactions: Allergies Allergy/AdvReac Type Severity Reaction Status Date / Time Penicillins Allergy RASH Verified 10/31/17 11:20 Review of Systems ROS Statement: Except As Marked, All Systems Reviewed And Found Negative Constitutional: Negative for: Fever, Chills Cardiovascular: Positive for: Chest Pain Respiratory: Negative for: Shortness of Breath Gastrointestinal: Negative for: Nausea, Vomiting, Abdominal Pain Neurological: Positive for: Headache Psych: Positive for: Anxiety Physical Exam - Reviewed Nursing Documentation Reviewed: Yes Vital Signs Reviewed: Yes - Physical Exam Appears: Positive for: Well, Non-toxic, No Acute Distress Head Exam: Positive for: ATRAUMATIC, NORMAL INSPECTION, NORMOCEPHALIC Skin: Positive for: Normal Color, Warm, DRY Eye Exam: Positive for: EOMI, Normal appearance, PERRL ENT: Positive for: Normal ENT Inspection Neck: Positive for: Normal, Painless ROM Cardiovascular/Chest: Positive for: Regular Rate, Rhythm Respiratory: Positive for: CNT, Normal Breath Sounds Gastrointestinal/Abdominal: Positive for: Normal Exam, Soft Back: Positive for: Normal Inspection Extremity: Positive for: Normal ROM Neurologic/Psych: Positive for: Alert, Oriented - Laboratory Results Result Diagrams: 11/30/17 13:55 11/30/17 13:55 - ECG O2 Sat by Pulse Oximetry: 98 Medical Decision Making Medical Decision Making: patient's monitor shows markedly variations in tracings. 3 ekg's done and shows that patient's rhythm is sinus and the heart rate is normal. patient declined admission to psych for med adjustment. Per request of psychiatrist will starte WEllbutrin SR 150mg daily in place of Zoloft. Disposition - Clinical Impression Clinical Impression: Generalized anxiety disorder - Patient ED Disposition Is Patient to be Admitted: No Doctor Will See Patient In The: Office Counseled Patient/Family Regarding: Diagnosis, Need For Followup, Rx Given - Disposition Referrals: Sadie Guallpa MD [Medical Doctor] - Disposition: Routine/Home Disposition Time: 18:00 Condition: STABLE Prescriptions: buPROPion SR [Wellbutrin SR 150 MG] 150 mg PO DAILY #30 tab Instructions: Generalized Anxiety Disorder Forms: [employer] ([place]ib[place]ian) - POA Present On Arrival: None
[2017-11-30 18:13] VITALS: O2SAT 98
[2017-11-30 18:44] VITALS: BP 138/96; PULSE 95
--- NOTE | 2017-12-01 17:06 | CARD ---
APPROVED REPORT EKG Measurement Heart [id number] [place] [id number] <Conclusion> Probable normal sinus rhythm with baseline artefact Possible Left atrial enlargement Please correlate clinically as atrial flutter cannot be reuled out
== END 2017-11-30 18:50 | disposition home or self-care (01) ==
LOC: H.ER 12:21
DX: F41.1 Generalized anxiety disorder (principal); R07.89 Other chest pain; G20 Parkinson's disease; F32.9 Major depressive disorder, single episode, unspecified; I10 Essential (primary) hypertension; I48.92 Unspecified atrial flutter; Z79.82 Long term (current) use of aspirin; Z88.0 Allergy status to penicillin
CPT/HCPCS: 80053; 84484; 85025; 93005; 99284; J7030